=== PATIENT | male | born 1945 | race Caucasian/White ===

== ENCOUNTER 2020-08-14 09:34 | Inpatient (IN) | payer MEDICARE ==
[~2020-08-14] VITALS: Ht 167.6 cm; Wt 74.8 kg
[~2020-08-14 09:34] MED LIST: OXYCODON-ACETA1 EAC1 PO; STOOL SOFTENER1 EACH PO; VENTOLIN/PROVE0.5 ML INH; ZANTAC300 MG PO
[2020-08-14 14:19] LABS: RED BLOOD COUNT 5.14 M/UL (4.20-5.50); WHITE BLOOD COUNT 9.5 K/UL (4.5-11.0)
[2020-08-14] MEDS ORDERED: IPRAT-ALBUT 0.5-3 ML INH (14:19)
[2020-08-14] MEDS ORDERED: FLOMAX 0.4 MG0.4 MG PO (14:19)
[2020-08-14 14:59] LABS: BUN/CREATININE RATIO 31 (0-10)
[2020-08-14] MEDS ORDERED: GABAPENTIN300 MG PO (14:59)
[2020-08-14] MEDS ORDERED: OMEPRAZOLE40 MG PO (15:00)
[2020-08-14] MEDS ORDERED: SEROQUEL100 MG PO (15:00)
[2020-08-14] MEDS ORDERED: HYDROCODON-ACE1 EAC2 PO (15:00)
[2020-08-14] MEDS ORDERED: FLONASE 0.05% N16 GM (15:01)
[2020-08-14] MEDS ORDERED: SPIRIVA18 MCG INH (15:01)
[2020-08-14] MEDS ORDERED: SALINE NOSE SPR45 ML (15:02)
[2020-08-14] MEDS ORDERED: BUDESONIDE-FO10.2 G1 INH (15:02)
[2020-08-14] MEDS ORDERED: PREDNISONE 20 M20 MG PO (15:03)
[2020-08-14] MEDS ORDERED: FELODIPINE ER5 MG PO (15:03)
[2020-08-14] MEDS ORDERED: NARCAN4 MG (15:03)
[2020-08-16 03:26] LABS: HEMOGLOBIN 12.3 gm/dl (14.0-17.5); RED BLOOD COUNT 4.86 M/UL (4.20-5.50)
[2020-08-16 03:28] LABS: WHITE BLOOD COUNT 7.1 K/UL (4.5-11.0)
[2020-08-16 03:57] LABS: BUN/CREATININE RATIO 38 (0-10)
[2020-08-17 05:04] LABS: HEMOGLOBIN 11.9 gm/dl (14.0-17.5); RED BLOOD COUNT 4.78 M/UL (4.20-5.50); WHITE BLOOD COUNT 7.5 K/UL (4.5-11.0)
[2020-08-17 05:46] LABS: BUN/CREATININE RATIO 40 (0-10)
[2020-08-17] MEDS ORDERED: DOXYCYCLINE MO100 MG PO (09:24)
[2020-08-17] MEDS ORDERED: DALIRESP 500500 MCG PO (09:24)
[2020-08-17] MEDS ORDERED: HUMIBID LA TAB600 MG PO (09:24)
== END 2020-08-17 15:44 | disposition home or self-care (01) | DRG 193 ==
LOC: PROG CARE 12:21
PROVIDERS: ADMIT Internal Medicine
DX: J18.9 Pneumonia, unspecified organism (principal); J96.01 Acute respiratory failure with hypoxia; J96.02 Acute respiratory failure with hypercapnia; J44.1 Chronic obstructive pulmonary disease with (acute) exacerbation; E78.5 Hyperlipidemia, unspecified; G47.33 Obstructive sleep apnea (adult) (pediatric); R32 Unspecified urinary incontinence; Z96.1 Presence of intraocular lens; M54.5 Low back pain; F32.9 Major depressive disorder, single episode, unspecified; K63.5 Polyp of colon; M19.90 Unspecified osteoarthritis, unspecified site; K21.9 Gastro-esophageal reflux disease without esophagitis; G89.4 Chronic pain syndrome; Z82.49 Family history of ischemic heart disease and other diseases of the circulatory system; Z88.0 Allergy status to penicillin; Z85.46 Personal history of malignant neoplasm of prostate; Z85.118 Personal history of other malignant neoplasm of bronchus and lung; Z85.21 Personal history of malignant neoplasm of larynx; Z90.79 Acquired absence of other genital organ(s); Z72.0 Tobacco use
CPT/HCPCS: 36415; 36600; 71045; 71046; 80048; 80053; 82803; 83605; 83735; 83880; 84443; 85025; 85027; 85379; 86140; 87040; 87070; 87081; 87205; 93005; 94640; 94660; 94664; 94760; J0696; J1650; J1940; J2405; J2920